=== PATIENT | male | born 1995 | race Caucasian/White ===

== ENCOUNTER 2019-06-07 09:39 | Emergency (ER) | payer SELFPAY ==
--- NOTE | 2019-06-07 10:11 | EDM.PDOC ---
ED HPI GENERAL MEDICAL PROBLEM - General Chief Complaint: Upper Extremity Injury/Pain Stated Complaint: WRIST PAIN Time Seen by Provider: 06/07/19 09:55 Source of Information: Reports: Patient History Limitations: Reports: No Limitations - History of Present Illness INITIAL COMMENTS - FREE TEXT/NARRATIVE: 23-year-old male presents to ER complaining of left wrist pain and swelling for the past 1 week. Patient works at [employer] reports having to lift objects and twist things using his hands frequently. He is not recall any specific inciting injury and states the pain is swelling started insidiously. The pain is aggravated anytime he tries to lift or twist anything. He denies pain at rest. He has been taking [id number] Excedrin, which has only helped minimally. He does report breaking his left wrist as a child several years ago and did not require any surgery. He reports occasional flare-up of his left wrist pain which usually resolves spontaneously. Patient denies any fevers. Diagnostics: Left wrist x-ray - Related Data Allergies Allergy/AdvReac Type Severity Reaction Status Date / Time No Known Allergies Allergy Verified 09/15/18 21:48 Home Meds: Home Meds . [No Known Home Meds] 09/15/18 [History] Past Medical History HEENT History: Reports: None Cardiovascular History: Reports: None Respiratory History: Reports: None Gastrointestinal History: Reports: None Genitourinary History: Reports: None Musculoskeletal History: Reports: None Neurological History: Reports: None Psychiatric History: Reports: None Endocrine/Metabolic History: Reports: None Hematologic History: Reports: None Immunologic History: Reports: None Oncologic (Cancer) History: Reports: None Dermatologic History: Reports: None - Infectious Disease History Infectious Disease History: Reports: Chicken Pox - Past Surgical History Head Surgeries/Procedures: Reports: None Social & Family History - Family History Family Medical History: Noncontributory - Tobacco Use Smoking Status *Q: Never Smoker Second Hand Smoke Exposure: No - Caffeine Use Caffeine Use: Reports: Coffee - Recreational Drug Use Recreational Drug Use: No Review of Systems - Review of Systems Review Of Systems: ROS reveals no pertinent complaints other than HPI. ED EXAM, GENERAL - Physical Exam Exam: See Below General Appearance: Alert, No Apparent Distress Respiratory/Chest: No Respiratory Distress, Lungs Clear, Normal Breath Sounds Cardiovascular: Regular Rate, Rhythm Peripheral Pulses: 2+: Radial (L), Radial (R) Extremities: Other (Left Wrist: generalized tenderness to palpation. 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 Full ROM, however, elicits pain. No edema appreciated. Tinel's sign positive.) Course - Vital Signs Last Recorded V/S: Last Vital Signs Temp 97.4 F 06/07/19 09:51 Pulse 74 06/07/19 09:51 Resp 16 06/07/19 09:51 BP 114/64 06/07/19 09:51 Pulse Ox 97 06/07/19 09:51 - Orders/Labs/Meds Orders: Active Orders 24 hr Category Date Time Status Wrist Comp Min 3V Lt [CR] Stat Exams 06/07/19 10:04 Taken - Re-Assessments/Exams Free Text/Narrative Re-Assessment/Exam: 06/07/19 11:17 x-rays negative for any acute fractures or dislocations per my read. Departure - Departure Time of Disposition: 11:17 Disposition: Home, Self-Care 01 Condition: Good Clinical Impression: Left wrist injury - Discharge Information *PRESCRIPTION DRUG MONITORING PROGRAM REVIEWED*: Not Applicable *COPY OF PRESCRIPTION DRUG MONITORING REPORT IN PATIENT MIQUEL: Not Applicable Instructions: Cast or Splint Care, Adult, [id number] Referrals: PCP,None [Primary Care Provider] - Forms: ED Department Discharge Additional Instructions: Follow-up with your primary care provider within 1 week. Return to ER if symptoms persist or worsen. - My Orders Last 24 Hours: My Active Orders 06/07/19 10:04 Wrist Comp Min 3V Lt [CR] Stat - Assessment/Plan Last 24 Hours: My Active Orders 06/07/19 10:04 Wrist Comp Min 3V Lt [CR] Stat
--- NOTE | 2019-06-07 11:19 | CR ---
Indication: Pain and swelling. No new injury. History of fracture. Technique: Three views of the left wrist. Comparison: None. Findings: No acute fracture. Alignment is within normal limits. Joint spaces are preserved. Soft tissues are unremarkable. Impression: Unremarkable exam. No acute osseous abnormality. Dictated by Daniel Bradley MD @ Jun 07 2019 11:14AM Signed by Dr. Daniel Bradley @ Jun 07 2019 11:16AM
== END 2019-06-07 11:30 | disposition home or self-care (01) ==
LOC: MW.ED 09:39
DX: S69.92XA Unspecified injury of left wrist, hand and finger(s), initial encounter (principal); X50.1XXA Overexertion from prolonged static or awkward postures, initial encounter; Y93.89 Activity, other specified; Y92.89 Other specified places as the place of occurrence of the external cause; Y99.0 Civilian activity done for income or pay
CPT/HCPCS: 73110-26-LT; 73110-LT; 99283-25